=== PATIENT | male | born 1965 | race Caucasian/White ===

== ENCOUNTER → 2019-09-26 | Outpatient (CLI) | payer OTHER ==
--- NOTE | 2019-10-18 15:01 | SLEEPCENT ---
DATE: 09/26/2019 ORDERED BY: Dr. Pauly Reyes Nocturnal polysomnography was performed for the titration of pressure therapy in this patient with a history of obstructive sleep apnea syndrome, apnea-hypopnea index of 31. For testing, a ResMed AirFit F20 full-face mask of large size was used. There was 4 cm of water pressure applied to the circuit, and the lights were extinguished. There was 8 hours and 57 minutes of data reviewed. There was 240.5 minutes of sleep identified. Sleep latency was quite prolonged at 116 minutes. REM latency likewise prolonged at 401.5 minutes. Sleep architecture was fragmented. Improvement was seen late in the study. Overall sleep efficiency was 45.2%. The patient's electrocardiogram showed a sinus rhythm with an average heart rate of 80 beats per minute. EEG showed normal waveforms for wake and sleep. Respiratory events were best palliated with CPAP at a pressure of +8. Limb activity was noted; however, limb movement arousal index was 12.5. IMPRESSION: Obstructive sleep apnea syndrome (G47.33). RECOMMENDATION: Nightly use of pressure therapy, 8 cm of water. MTDD
== END ==
LOC: M SLEEP 20:00
PROVIDERS: ATTEND Nurse Practitioner Family
DX: G47.33 Obstructive sleep apnea (adult) (pediatric) (principal)